=== PATIENT | female | born 1990 ===

== ENCOUNTER 2022-02-12 18:00 | Inpatient (IN) | payer OTHER ==
[2022-02-12] MEDS ORDERED: ONDANSETRON 4 MG/2 ML VIAL IVPUSH ONE (19:45)
[2022-02-12] MEDS ORDERED: MAG HYDROX/AL HYDROX/SIMETH 30 ML UNIT-DOSE CUP PO ONE (19:45)
[2022-02-12] MEDS ORDERED: ONDANSETRON 4 MG/2 ML VIAL ONE (20:32)
[2022-02-12] MEDS ORDERED: MAG HYDROX/AL HYDROX/SIMETH 30 ML UNIT-DOSE CUP ONE (20:32)
[2022-02-12 21:17] LABS: BASO % 0.6 % (0-2.0); EOS % 0.8 % (0-4.5); HEMOGLOBIN 10.8 GM/dL (10.7-15.3); LYMPH % 16.7 % (8-40); MCH 25.4 pg (25.7-33.7); MCHC 31.9 g/dl (32.0-36.0); MEAN CELL VOLUME 79.5 fl (80-96); MEAN PLT VOLUME 8.6 fl (7.5-11.1); MONO % 6.6 % (3.8-10.2); NEUT % 75.3 % (42.8-82.8); PLATELET COUNT 271 10^3/uL (134-434); RBC 4.27 M/mm3 (3.60-5.2); RDW 14.9 % (11.6-15.6); WHITE BLOOD COUNT 11.4 K/mm3 (4.0-10.0)
[2022-02-12 21:23] LABS: EPI CELLS 21 /uL (0-25.1); HYALINE CASTS 3 /uL (0-3.1); PH,URINE 5.5 (5.0-8.0); URINE APPEARANCE CLOUDY; URINE BACTERIA 2414 /uL (0-1359); URINE BILIRUBIN NEGATIVE (NEGATIVE); URINE COLOR YELLOW; URINE GLUCOSE (UA) NEGATIVE (NEGATIVE); URINE KETONE NEGATIVE (NEGATIVE); URINE LEUK ESTERASE 2+ (NEGATIVE); URINE NITRITE NEGATIVE (NEGATIVE); URINE PROTEIN 2+ (NEGATIVE); URINE RBC 12 /uL (0-23.9); URINE UROBILINOGEN 0.2 mg/dL (0.2-1.0); URINE WBC 260 /uL (0-25.8)
[2022-02-12 21:26] LABS: HCG,QUALITATIVE URINE Negative
[2022-02-12 21:43] LABS: ALBUMIN 3.6 g/dl (3.4-5.0); BLOOD UREA NITROGEN 28.7 mg/dL (7-18); CALCIUM 8.9 mg/dL (8.5-10.1)
[2022-02-12 21:46] LABS: CREATININE 2.8 mg/dL (0.55-1.3)
[2022-02-12 21:48] LABS: BILIRUBIN,TOTAL 1.2 mg/dL (0.2-1); TOT PROT 6.9 g/dl (6.4-8.2)
[2022-02-12] MEDS ORDERED: SODIUM CHLORIDE 0.9% 500 ML INFUS.BAG IV ONE (22:31)
[2022-02-12] MEDS ORDERED: morphine CARPU-JECT 2 MG/1 ML DISP.SYRIN IVPUSH ONE (23:32)
[2022-02-13] MEDS ORDERED: KETOROLAC TROMETHAMINE 15 MG/ML VIAL IVPUSH PRN (01:12)
[2022-02-13] MEDS ORDERED: DEXTROSE 5%-NORMAL SALINE 1,000 ML IV SCH (01:15)
[2022-02-13] MEDS ORDERED: ACETAMINOPHEN 1000 MG/100 ML BAG IVPB PRN ×2 (01:17→17:41)
[2022-02-13] MEDS ORDERED: KETOROLAC TROMETHAMINE 15 MG/ML VIAL ONE (02:49)
[2022-02-13] MEDS ORDERED: CEFTRIAXONE 1 GM/50 ML BAG ONE ×2 (02:49→09:44)
[2022-02-13] MEDS ORDERED: ONDANSETRON 4 MG/2 ML VIAL IVPUSH PRN ×3 (02:49→17:41)
[2022-02-13] MEDS ORDERED: FAMOTIDINE 20 MG/50 ML IVPB 20 MG/50 ML MG IVPB ONE ×2 (02:50→05:28)
[2022-02-13] MEDS: CEFTRIAXONE 1 GM in DEXTROSE 5%-WATER - 50 ML IVPB SCH ×2 (02:57→10:18)
[2022-02-13] MEDS ORDERED: morphine SULFATE 4 MG/ML VIAL IVPUSH PRN (05:12)
[2022-02-13] MEDS ORDERED: ACETAMINOPHEN INJECTION 100 ML IVPB ONE ×2 (07:08→15:49)
[2022-02-13 07:25] LABS: BASO % 0.5 % (0-2.0); HEMATOCRIT 29.9 % (32.4-45.2); HEMOGLOBIN 9.7 GM/dL (10.7-15.3); LYMPH % 20.5 % (8-40); MCHC 32.6 g/dl (32.0-36.0); MEAN CELL VOLUME 79.8 fl (80-96); MEAN PLT VOLUME 8.9 fl (7.5-11.1); MONO % 7.3 % (3.8-10.2); NEUT % 70.7 % (42.8-82.8); PLATELET COUNT 227 10^3/uL (134-434); RBC 3.74 M/mm3 (3.60-5.2); WHITE BLOOD COUNT 10.5 K/mm3 (4.0-10.0)
[2022-02-13 07:58] LABS: CALCIUM 8.1 mg/dL (8.5-10.1); LIPASE 124 U/L (73-393)
[2022-02-13 07:59] LABS: ALBUMIN 3.1 g/dl (3.4-5.0); BLOOD UREA NITROGEN 29.6 mg/dL (7-18); MAGNESIUM 2.7 mg/dL (1.8-2.4)
[2022-02-13 08:02] LABS: CREATININE 2.9 mg/dL (0.55-1.3); PHOSPHOROUS 5.7 mg/dL (2.5-4.9)
[2022-02-13 08:04] LABS: TOT PROT 6.2 g/dl (6.4-8.2)
[2022-02-13 08:06] LABS: BILIRUBIN,TOTAL 1.1 mg/dL (0.2-1)
[2022-02-13] MEDS ORDERED: DEXTROSE 5%-0.45% SALINE 1,000 ML IV SCH (08:45)
[2022-02-13] MEDS ORDERED: ONDANSETRON 4 MG/2 ML VIAL ONE (09:39)
[2022-02-13] MEDS ORDERED: morphine SULFATE 4 MG/ML VIAL ONE (09:39)
[2022-02-13] MEDS ORDERED: PANTOPRAZOLE 40 MG TABLET PO ONE (09:43)
[2022-02-13] MEDS ORDERED: POLYETHYLENE GLYCOL (HEALTHYLAX) 3350 17 GM PACKET ONE (09:43)
[2022-02-13] MEDS ORDERED: ENOXAPARIN NA (PORCINE) 30 MG/0.3 ML DISP.SYRIN SQ ONE (09:44)
[2022-02-13] MEDS ORDERED: ENOXAPARIN NA (PORCINE) 30 MG/0.3 ML DISP.SYRIN SQ SCH (10:00)
[2022-02-13] MEDS ORDERED: POLYETHYLENE GLYCOL (HEALTHYLAX) 3350 17 GM PACKET PO SCH (10:00)
[2022-02-13] MEDS ORDERED: PANTOPRAZOLE 40 MG TABLET PO SCH (10:00)
[2022-02-13] MEDS ORDERED: ENOXAPARIN NA (PORCINE) 40 MG/0.4 ML DISP.SYRIN SQ SCH (10:00)
[2022-02-13] MEDS ORDERED: BUPIVACAINE HCL/PF 0.25% (2.5MG/ML) 10 ML VIAL ONE (14:05)
[2022-02-13] MEDS ORDERED: oxyCODONE HCL 5 MG TABLET PO PRN ×2 (15:23)
[2022-02-13] MEDS ORDERED: MIDAZOLAM HCL 2 MG/2 ML SINGLE DOSE VIAL ONE (15:35)
[2022-02-13] MEDS ORDERED: PROPOFOL 20 ML ONE ×2 (15:35)
[2022-02-13] MEDS ORDERED: ROCURONIUM BROMIDE 50 MG/5 ML SYRINGE ONE ×2 (15:37→15:54)
[2022-02-13] MEDS ORDERED: BUPIVACAINE HCL/PF 0.25% (2.5MG/ML) 10 ML VIAL IJ ONE ×2 (15:40→16:01)
[2022-02-13] MEDS ORDERED: SUGAMMADEX SODIUM 200 MG/2 ML VIAL ONE (15:54)
[2022-02-13] MEDS ORDERED: BUPIVACAINE HCL/PF 0.5% (5MG/ML) 10 ML VIAL ONE (16:10)
[2022-02-13] MEDS ORDERED: FENTANYL CITRATE/PF 50 MCG/ML VIAL ONE ×2 (17:37→18:42)
[2022-02-13] MEDS: SODIUM CHLORIDE 1,000 ML IV SCH (19:15)
[2022-02-13] MEDS: ONDANSETRON 4 MG/2 ML VIAL IVPUSH PRN (20:38)
[2022-02-13] MEDS: morphine SULFATE 4 MG/ML VIAL IVPUSH PRN (20:43)
[2022-02-13 21:08] LABS: URINE APPEARANCE CLEAR; URINE BILIRUBIN NEGATIVE (NEGATIVE); URINE COLOR YELLOW; URINE GLUCOSE (UA) NEGATIVE (NEGATIVE); URINE KETONE NEGATIVE (NEGATIVE); URINE LEUK ESTERASE NEGATIVE (NEGATIVE); URINE NITRITE NEGATIVE (NEGATIVE); URINE PROTEIN TRACE (NEGATIVE); URINE UROBILINOGEN 0.2 mg/dL (0.2-1.0)
[2022-02-13] MEDS: SENNOSIDES 8.6MG TABLET (FP) PO SCH (21:44)
[2022-02-13] MEDS ORDERED: SENNOSIDES 8.6MG TABLET (FP) PO SCH (22:00)
[2022-02-13 22:58] LABS: IRON SERUM 23 ug/dL (50-175); TOTAL IRON BINDING CAPACITY 269 ug/dL (250-450)
[2022-02-14] MEDS: SODIUM CHLORIDE 1,000 ML IV SCH ×2 (05:49→17:57)
[2022-02-14] MEDS: morphine SULFATE 4 MG/ML VIAL IVPUSH PRN (06:59)
[2022-02-14] MEDS: ONDANSETRON 4 MG/2 ML VIAL IVPUSH PRN ×2 (07:58→16:26)
[2022-02-14] MEDS ORDERED: cefTRIAXone SODIUM 1 GM VIAL ONE (09:09)
[2022-02-14] MEDS: POLYETHYLENE GLYCOL (HEALTHYLAX) 3350 17 GM PACKET PO SCH (09:14)
[2022-02-14] MEDS: PANTOPRAZOLE 40 MG TABLET PO SCH (09:14)
[2022-02-14] MEDS: ENOXAPARIN NA (PORCINE) 30 MG/0.3 ML DISP.SYRIN SQ SCH (09:14)
[2022-02-14] MEDS: CEFTRIAXONE 1 GM in DEXTROSE 5%-WATER - 50 ML IVPB SCH (09:14)
[2022-02-14 09:55] LABS: HEMATOCRIT 33.1 % (32.4-45.2); HEMOGLOBIN 10.5 GM/dL (10.7-15.3); MCH 25.7 pg (25.7-33.7); MCHC 31.7 g/dl (32.0-36.0); MEAN CELL VOLUME 80.9 fl (80-96); MEAN PLT VOLUME 9.2 fl (7.5-11.1); PLATELET COUNT 232 10^3/uL (134-434); RBC 4.09 M/mm3 (3.60-5.2); RDW 14.9 % (11.6-15.6); WHITE BLOOD COUNT 11.1 K/mm3 (4.0-10.0)
[2022-02-14 10:19] LABS: ALBUMIN 2.9 g/dl (3.4-5.0)
[2022-02-14 10:20] LABS: BLOOD UREA NITROGEN 21.6 mg/dL (7-18); CALCIUM 8.2 mg/dL (8.5-10.1)
[2022-02-14 10:23] LABS: CREATININE 1.9 mg/dL (0.55-1.3)
[2022-02-14 10:25] LABS: BILIRUBIN,TOTAL 1.4 mg/dL (0.2-1); TOT PROT 6.2 g/dl (6.4-8.2)
[2022-02-14] MEDS: ACETAMINOPHEN 1000 MG/100 ML BAG IVPB SCH ×3 (10:57→22:18)
[2022-02-14] MEDS: SENNOSIDES 8.6MG TABLET (FP) PO SCH (22:19)
[2022-02-15] MEDS: ACETAMINOPHEN 1000 MG/100 ML BAG IVPB SCH (03:32)
[2022-02-15] MEDS ORDERED: ACETAMINOPHEN 1000 MG/100 ML BAG IVPB PRN (09:17)
[2022-02-15] MEDS ORDERED: DEXTROSE 5%-WATER - 50 ML IVPB ONE (09:19)
[2022-02-15] MEDS ORDERED: cefTRIAXone SODIUM 1 GM VIAL ONE (09:19)
[2022-02-15] MEDS: PANTOPRAZOLE 40 MG TABLET PO SCH (09:35)
[2022-02-15] MEDS: POLYETHYLENE GLYCOL (HEALTHYLAX) 3350 17 GM PACKET PO SCH (09:36)
[2022-02-15] MEDS: ENOXAPARIN NA (PORCINE) 30 MG/0.3 ML DISP.SYRIN SQ SCH (09:36)
[2022-02-15] MEDS: CEFTRIAXONE 1 GM in DEXTROSE 5%-WATER - 50 ML IVPB SCH (10:51)
[2022-02-15 11:42] LABS: HEMATOCRIT 29.3 % (32.4-45.2); HEMOGLOBIN 9.6 GM/dL (10.7-15.3); MCH 26.3 pg (25.7-33.7); MCHC 32.6 g/dl (32.0-36.0); MEAN CELL VOLUME 80.6 fl (80-96); MEAN PLT VOLUME 9.1 fl (7.5-11.1); PLATELET COUNT 223 10^3/uL (134-434); RBC 3.63 M/mm3 (3.60-5.2); RDW 14.7 % (11.6-15.6); WHITE BLOOD COUNT 9.3 K/mm3 (4.0-10.0)
[2022-02-15 12:03] LABS: CALCIUM 8.1 mg/dL (8.5-10.1)
[2022-02-15 12:04] LABS: ALBUMIN 2.7 g/dl (3.4-5.0); BLOOD UREA NITROGEN 16.1 mg/dL (7-18)
[2022-02-15 12:07] LABS: CREATININE 1.3 mg/dL (0.55-1.3)
[2022-02-15 12:08] LABS: BILIRUBIN,TOTAL 0.8 mg/dL (0.2-1); TOT PROT 5.8 g/dl (6.4-8.2)
[2022-02-15] MEDS: SODIUM CHLORIDE 1,000 ML IV SCH ×2 (14:09→17:48)
[2022-02-15] MEDS: ONDANSETRON 4 MG/2 ML VIAL IVPUSH PRN ×2 (14:09→22:23)
[2022-02-15] MEDS: SENNOSIDES 8.6MG TABLET (FP) PO SCH (21:59)
[2022-02-15 22:37] VITALS: BMI 32.7
[2022-02-16 06:17] VITALS: BP 159/78; PULSE 63; TEMP 98.4
[2022-02-16 09:02] LABS: BLOOD UREA NITROGEN 14.6 mg/dL (7-18)
[2022-02-16 09:05] LABS: CREATININE 1.2 mg/dL (0.55-1.3)
[2022-02-16] MEDS ORDERED: FUROSEMIDE 40 MG/4 ML INJECTABLE VIAL IVPUSH ONE (09:44)
[2022-02-16] MEDS ORDERED: cefTRIAXone SODIUM 1 GM VIAL ONE (10:36)
[2022-02-16] MEDS ORDERED: DEXTROSE 5%-WATER - 50 ML IVPB ONE (10:36)
[2022-02-16] MEDS: CEFTRIAXONE 1 GM in DEXTROSE 5%-WATER - 50 ML IVPB SCH (10:44)
[2022-02-16] MEDS: ENOXAPARIN NA (PORCINE) 30 MG/0.3 ML DISP.SYRIN SQ SCH (10:45)
[2022-02-16] MEDS: POLYETHYLENE GLYCOL (HEALTHYLAX) 3350 17 GM PACKET PO SCH (10:46)
[2022-02-16] MEDS: PANTOPRAZOLE 40 MG TABLET PO SCH (10:46)
== END 2022-02-16 15:39 | disposition home or self-care (01) | DRG 263 ==
LOC: JER 18:00 → INTOOBSV 23:31 → JERBED 23:31 → OBSVTOIN 02-13 09:31 → J6S 02-13 13:56 → J7W 02-15 15:49
PROVIDERS: ADMIT Hospitalist; ATTEND Internal Medicine
PROC: 0FT44ZZ Resection of Gallbladder, Percutaneous Endoscopic Approach (ICD-10-PCS; principal; 2022-02-13 15:00)
DX: K81.0 Acute cholecystitis (principal); D50.9 Iron deficiency anemia, unspecified; N17.9 Acute kidney failure, unspecified; D72.829 Elevated white blood cell count, unspecified; E66.9 Obesity, unspecified; Z68.32 Body mass index [BMI] 32.0-32.9, adult
CPT/HCPCS: 0241U-QW; 36415; 71045-TC-FY; 74019-TC-FY; 76705-TC; 76775-TC; 80048; 80053; 81003; 82436; 82728; 83540; 83550; 83690; 83735; 84100; 84133; 84300; 84443; 84703; 85025; 85027; 87040; 87086; 88304-TC; 93005; 93010; 94010; 94760; 99285-25; G0378